=== PATIENT | male | born 1995 | race Caucasian/White ===

== ENCOUNTER 2018-01-05 10:35 | Emergency (ER) | payer BC, OTHER ==
[~2018-01-05] VITALS: Ht 180.3 cm; Wt 90.0 kg
[2018-01-05] MEDS ORDERED: HYDROcodone/APAP 5/325 TABLET PO ONE (13:00)
[2018-01-05] MEDS ORDERED: HYDROcodone/APAP 5/325 TABLET ONE (13:16)
[2018-01-05 15:02] VITALS: BP 115/65
== END 2018-01-05 15:04 | disposition home or self-care (01) ==
LOC: ED 12:16
DX: R51 Headache (principal); J45.909 Unspecified asthma, uncomplicated
CPT/HCPCS: 70450; 99284